=== PATIENT | female | born 1995 | race Caucasian/White ===

== ENCOUNTER → 2017-11-06 09:26 | Outpatient (CLI) | payer OTHER ==
[~2017-11-06 09:26] MED LIST: KETO10TA2 PO; ZOLOFT100 MG
== END | disposition home or self-care (01) ==
LOC: LAB 09:26
DX: N39.0 Urinary tract infection, site not specified (principal); D50.9 Iron deficiency anemia, unspecified

== ENCOUNTER → 2018-01-13 | Emergency (ER) | payer OTHER ==
[~2018-01-13] VITALS: Ht 167.6 cm; Wt 59.0 kg
[~2018-01-13] MED LIST changes: +PEPCID20 MG PO; +ZOFRAN4 MG PO
== END | disposition home or self-care (01) ==
LOC: ER 08:30
DX: O21.0 Mild hyperemesis gravidarum (principal); Z34.01 Encounter for supervision of normal first pregnancy, first trimester

== ENCOUNTER 2018-05-19 13:43 | Inpatient (IN) | payer OTHER ==
[~2018-05-19] VITALS: Ht 162.6 cm; Wt 70.8 kg
[2018-06-03] MEDS ORDERED: DIALYVITE 800-1 EACH PO (22:30)
== END 2018-06-06 11:34 | DRG 775 ==
LOC: LDR 06-03 22:24 → OB/GYN 06-04 16:39 → LDR 06-12 13:42
PROC: 10E0XZZ Delivery of Products of Conception, External Approach (ICD-10-PCS; principal; 2018-06-04)
PROC: 0HQ9XZZ Repair Perineum Skin, External Approach (ICD-10-PCS; 2018-06-04)
PROC: 10907ZC Drainage of Amniotic Fluid, Therapeutic from Products of Conception, Via Natural or Artificial Opening (ICD-10-PCS; 2018-06-04)
PROC: 3E033VJ Introduction of Other Hormone into Peripheral Vein, Percutaneous Approach (ICD-10-PCS; 2018-06-04)
PROC: 4A1HXCZ Monitoring of Products of Conception, Cardiac Rate, External Approach (ICD-10-PCS; 2018-06-04)
DX: O70.0 First degree perineal laceration during delivery (principal); Z3A.39 39 weeks gestation of pregnancy; Z37.0 Single live birth

== ENCOUNTER 2020-04-08 05:51 | Day surgery (SDC) | payer OTHER ==
[~2020-04-08] VITALS: Ht 157.5 cm; Wt 65.3 kg
[~2020-04-08 05:51] MED LIST changes: +DIALYVITE 800-1 EACH PO
== END 2020-04-08 16:20 | disposition home or self-care (01) ==
LOC: ER 05:51 → CIR.AMB 07:46
PROVIDERS: ATTEND Specialist
DX: O02.1 Missed abortion (principal)

== ENCOUNTER 2020-06-03 16:57 | Emergency (ER) | payer OTHER ==
[~2020-06-03] VITALS: Ht 157.5 cm; Wt 68.0 kg
[2020-06-03] MEDS ORDERED: PROMETRIUM200 MG (17:04)
== END 2020-06-03 22:36 | disposition home or self-care (01) ==
LOC: ER 16:57
DX: O03.9 Complete or unspecified spontaneous abortion without complication (principal); Z3A.08 8 weeks gestation of pregnancy

== ENCOUNTER 2024-01-02 17:07 | Emergency (ER) | payer OTHER ==
[~2024-01-02] VITALS: Ht 152.4 cm; Wt 75.7 kg
[~2024-01-02 17:07] MED LIST changes: +PROMETRIUM200 MG
[2024-01-02] MEDS ORDERED: KETOROLAC TROMETHAMINE 30 MG VIAL IV ONE (18:45)
[2024-01-02 19:01] LABS: HEMATOCRIT 40.4 % (36.0-45.00); HEMOGLOBIN 13.9 g/dL (12.0-15.00); MEAN CORPUSCULAR HEMOGLOBIN 29.9 pg (27.00-32.0); MEAN CORPUSCULAR HGB CONC 34.4 g/dl (32.0-36.0); PLATELET COUNT 395 K/uL (150-450); RED BLOOD COUNT 4.65 M/uL (4.00-6.00); RED CELL DISTRIBUTION WIDTH 13.6 % (11.5-14.5)
[2024-01-02 19:44] LABS: ALBUMIN 3.6 gm/dL (3.4-5.0); BILIRUBIN TOTAL 0.29 mg/dL (0.3-1.2); CALCIUM 9.7 mg/dL (8.5-10.1); CREATININE SERUM 0.73 mg/dL (0.55-1.02); GFR 94.93; GLOBULINA 4.4 G/DL (2.4-3.5); POTASSIUM 3.77 mEq/L (3.5-5.1)
== END 2024-01-02 21:16 | disposition home or self-care (01) ==
LOC: ER 17:07
PROVIDERS: General Practice
DX: N93.9 Abnormal uterine and vaginal bleeding, unspecified (principal); R10.2 Pelvic and perineal pain; Z88.1 Allergy status to other antibiotic agents

== ENCOUNTER 2024-08-10 10:20 | Outpatient (CLI) | payer OTHER | END 2024-08-10 10:30 | disposition home or self-care (01) | LOC: SONOGRAMA 10:20 | PROVIDERS: ATTEND Specialist | DX: N63.0 Unspecified lump in unspecified breast (principal); Z12.31 Encounter for screening mammogram for malignant neoplasm of breast ==

== ENCOUNTER 2025-07-31 14:17 | Emergency (ER) | payer OTHER ==
[~2025-07-31] VITALS: Ht 154.9 cm; Wt 70.8 kg
[2025-07-31 16:38] LABS: BASO % 0.2 % (0.1-1.2); EOS # 0.06 (0.04-0.54); EOS % 0.7 % (0.7-7.0); LYMPH # 1.94 (1.18-3.74); LYMPH % 23.2 % (19.3-53.1); MEAN PLATELET VOLUME 9.50 fl (9.4-12.4); MONO # 0.51 (0.24-0.82); MONO % 6.1 % (4.7-12.5); NEUT # 5.79 (1.56-6.13); NEUT % 69.1 % (34.0-71.1); RED CELL DISTRIBUTION WIDTH 12.7 % (11.6-14.4)
[2025-07-31 17:04] LABS: URINE APPEARANCE Clear; URINE BILIRRUBIN Negative (NEGATIVE); URINE BLOOD Negative; URINE COLOR Yellow; URINE GLUCOSE Negative (NEGATIVE); URINE KETONE Trace (NEGATIVE); URINE LEUKOCYTE Moderate; URINE NITRATE Negative; URINE PROTEIN Negative (NEGATIVE); URINE UROBILINOGEN 0.2 E.U./dl
[2025-07-31 17:09] LABS: URINE BACTERIA 1844.3 uL (0.0-1933); URINE EPITHELIAL CELLS 14.3 uL (0.0-38.8); URINE RBC 16.1 uL (0.0-20.8); URINE WBC 148.6 uL (0.0-23.2)
[2025-07-31 17:13] LABS: TYPE CELLS SQUAMOUS; URINE CAST 0.14 uL (0.0-1.40)
[2025-07-31] MEDS ORDERED: MACROBID 100 M100 MG PO (19:29)
[2025-07-31] MEDS ORDERED: PEPCID AC20 MG PO (19:29)
== END 2025-07-31 19:44 | disposition home or self-care (01) ==
LOC: ER 14:18
PROVIDERS: General Practice
DX: O20.8 Other hemorrhage in early pregnancy (principal); Z3A.10 10 weeks gestation of pregnancy; Z88.1 Allergy status to other antibiotic agents